=== PATIENT | male | born 1965 | race Asian ===

== ENCOUNTER → 2019-01-04 11:26 | Outpatient (CLI) | payer BC, SELFPAY | PROVIDERS: PCP Family Medicine; Visit Provider Registered Nurse | DX: R50.9 Fever, unspecified (principal) | CPT/HCPCS: 87400 ==

== ENCOUNTER → 2019-11-17 12:08 | Outpatient (CLI) | payer BC, SELFPAY ==
--- NOTE | 2019-11-17 12:11 | DI.RAD.S_ITS ---
PROCEDURE: XR SHOULDER RT MIN 2V INDICATIONS: rt shoulder pain TECHNIQUE: 3 views of the shoulder were acquired. COMPARISON: None. FINDINGS: Bones: No fractures or dislocations. No suspicious bony lesions. Visualized ribs appear intact. Mild joint narrowing with periarticular osteophyte formation. Soft tissues: No suspicious soft tissue calcifications. IMPRESSION: Mild acromioclavicular and glenohumeral joint degeneration Dictated by: Sang Amador RRA Interpreted: Caridad Page MD on 11/17/2019 at 13:47 Approved by: Caridad Page M.D. on 11/17/2019 at 14:02
== END ==
PROVIDERS: PCP Family Medicine; Visit Provider Family Medicine
DX: M25.511 Pain in right shoulder (principal); M19.011 Primary osteoarthritis, right shoulder
CPT/HCPCS: 73030

== ENCOUNTER → 2020-04-22 15:37 | Outpatient (ROUT) | payer BC, SELFPAY ==
[2020-04-24 10:58] LABS: COVID19 Sendout NOT DETECTED (Not Detect)
== END ==
PROVIDERS: PCP Family Medicine; Visit Provider Nurse Practitioner
DX: J45.901 Unspecified asthma with (acute) exacerbation (principal)
CPT/HCPCS: 87635

== ENCOUNTER → 2020-08-23 07:31 | Outpatient (CLI) | payer BC, SELFPAY ==
--- NOTE | 2020-08-23 07:33 | DI.RAD.S_ITS ---
PROCEDURE: XR LUMBAR SPINE MIN 4V INDICATIONS: left side back pain and hip TECHNIQUE: 5 views of the lumbar spine were acquired. COMPARISON: None. FINDINGS: Bones: 5 nonrib-bearing vertebrae are present. There is normal bony alignment. No vertebral body compression fractures. No suspicious bony lesions. Soft tissues: Overlying bowel gas pattern is normal. No suspicious soft tissue calcifications. Oblique images: No pars defects. IMPRESSION: Mild degenerative disc height reduction at L5-S1, mild to moderate facet osteoarthritis at this level. No trauma found. The degenerative changes present would predispose to both spinal and foraminal stenosis and follow-up by MRI may become necessary. Dictated by: Sergei Marie M.D. on 08/23/2020 at 9:35 Approved by: Sergei Marie M.D. on 08/23/2020 at 9:36
--- NOTE | 2020-08-23 07:33 | DI.RAD.S_ITS ---
PROCEDURE: XR HIP W PEL IF DONE LT MIN 4V INDICATIONS: left side back pain and hip TECHNIQUE: AP pelvis with lateral view(s) of the bilateral hip(s). COMPARISON: None. FINDINGS: Bones: No fractures or dislocations. Pelvic ring appears intact. No suspicious bony lesions. Soft tissues: The visualized bowel gas pattern is normal. No suspicious soft tissue calcifications. IMPRESSION: Normal for age, source of current pain symptoms is not seen. Dictated by: Sergei Marie M.D. on 08/23/2020 at 9:34 Approved by: Sergei Marie M.D. on 08/23/2020 at 9:35
[2020-08-23 08:38] LABS: Add Manual Diff / Slide Review NO; Basophils Absolute Auto 0 /uL (0-100); Basophils Percent Auto 0.5 % (0-2); Eosinophils Absolute Auto 100 /uL (0-450); Eosinophils Percent Auto 2.2 % (2-4); Hematocrit 43.5 % (41-53); Hemoglobin 14.9 g/dL (13.5-17.5); Lymphocytes Absolute Auto 1500 /uL (1100-4500); Lymphocytes Percent Auto 23.8 % (25-40); Mean Corpuscular HGB Conc 34.2 % (30-36); Mean Corpuscular Hemoglobin 30.4 PG (26-34); Mean Corpuscular Volume 88.8 fL (80-100); Monocytes Absolute Auto 600 /uL (0-900); Monocytes Percent Auto 9.2 % (3-14); Neutrophils Absolute Auto 3900 /uL (1500-7000); Neutrophils Percent Auto 64.3 % (50-75); Platelet Count 264 X10^3/uL (150-400); Red Blood Cell Count 4.89 X10^6/uL (4.5-5.9); Red Cell Distribution Width 13.4 % (11.6-14.8); White Blood Cell Count 6.1 X10^3/uL (4.5-11.0)
[2020-08-23 09:13] LABS: Alanine Aminotransferase 23 IU/L (<50); Albumin 4.4 g/dL (3.5-5.0); Albumin Globulin Ratio 1.5 (1.0-2.8); Alkaline Phosphatase 45 U/L (38-126); Aspartate Aminotransferase 29 IU/L (17-59); BUN Creatinine Ratio 10.9 (6-22); Bilirubin Total 0.6 mg/dL (0.2-1.3); Blood Urea Nitrogen 10 mg/dL (9-20); Calcium 9.5 mg/dL (8.4-10.2); Carbon Dioxide 35 mmol/L (22-32); Chloride 97 mmol/L (98-107); Cholesterol 209 mg/dL (140-199); Estimated Glomerular Filt Rate > 60.0 mL/min (>60); Globulin 2.9 g/dL (1.7-4.1); Glucose 99 mg/dL (70-100); HDL Cholesterol 54 mg/dL (40-60); HEMOLYSIS < 15 (0-50); LDL Cholesterol Calculated 109 mg/dL (<100); Potassium 4.5 mmol/L (3.4-5.1); Sodium 136 mmol/L (137-145); Total Protein 7.3 g/dL (6.3-8.2); Triglycerides 228 mg/dL (35-150)
[2020-08-23 09:44] LABS: TSH w/ Reflex to FT4 0.83 uIU/mL (0.47-4.68)
== END ==
PROVIDERS: PCP Family Medicine; Referring Provider Family Medicine; Visit Provider Family Medicine
DX: I10 Essential (primary) hypertension (principal); I48.91 Unspecified atrial fibrillation; K21.9 Gastro-esophageal reflux disease without esophagitis; M54.5 Low back pain
CPT/HCPCS: 36415; 72110; 73522; 80053; 80061; 84443; 85025

== ENCOUNTER → 2021-01-10 13:42 | Outpatient (CLI) | payer BC, SELFPAY ==
[2021-01-10] MEDS: COVID-19 VACC, Ad26(JANSSEN)/PF 0.5 ML IM (13:47)
== END ==
PROVIDERS: PCP Family Medicine; Visit Provider Internal Medicine
DX: Z23 Encounter for immunization (principal)
CPT/HCPCS: 0031A; 91303

== ENCOUNTER → 2021-11-24 07:30 | Outpatient (CLI) | payer BC, SELFPAY ==
--- NOTE | 2021-11-24 07:32 | DI.RAD.S_ITS ---
PROCEDURE: XR ABDOMEN MIN 2V INDICATIONS: abdominal pain TECHNIQUE: 2 views of the abdomen were acquired. COMPARISON: None. FINDINGS: Surgical changes and devices: None. Bowel: No pneumoperitoneum. The bowel gas pattern is nonobstructive. Moderate stool is present. Soft tissues: No masses; visualized solid organ contours appear normal in size. No suspicious abdominal calcifications. Bones: No suspicious bony abnormalities. IMPRESSION: Moderate stool consistent with constipation. No obstruction. Dictated by: Caridad Page M.D. on 11/24/2021 at 8:35 Approved by: Cardiad Page M.D. on 11/24/2021 at 8:35
--- NOTE | 2021-11-24 07:32 | DI.RAD.S_ITS ---
PROCEDURE: XR CHEST 2V INDICATIONS: cough TECHNIQUE: 2 views of the chest were acquired. COMPARISON: None. FINDINGS: Surgical changes and devices: None. Lungs and pleura: Lungs are clear. No pleural effusions or pneumothorax. Mediastinum: Mediastinal contours are normal. Heart size is normal. Bones and chest wall: No suspicious bony abnormalities. Soft tissues appear unremarkable. IMPRESSION: No acute pulmonary process. Dictated by: Caridad Page M.D. on 11/24/2021 at 8:34 Approved by: Caridad Page M.D. on 11/24/2021 at 8:35
--- NOTE | 2021-11-24 07:32 | DI.US.S_ITS ---
PROCEDURE: US ABDOMEN COMPLETE INDICATIONS: ABDOMINAL DISCOMFORT AND FAMILY HISTORY AORTIC ANEURYSM TECHNIQUE: Real-time scanning was performed of the abdominal and retroperitoneal organs, with image documentation. COMPARISON: [facility], CR, XR ABDOMEN MIN 2V, 11/24/2021, 7:29. FINDINGS: Liver: Liver is normal in size and homogeneous in echotexture. Gallbladder: Multiple small stones and apparent mobile sludge can be seen within the gallbladder. A polyp versus gallbladder fold can be seen at the junction of the gallbladder neck and the cystic duct that measures up to 7 mm. The gallbladder wall is not thickened, measuring 3 mm or less. No specific pericholecystic fluid is seen. The sonographic Noble sign is negative. Biliary ducts: Intrahepatic bile ducts are non-dilated. Extrahepatic bile duct caliber measures 3 mm. Normal is 6-7 mm or less in diameter, or 10 mm or less post-cholecystectomy. Pancreas: There is a potential pancreatic cyst seen at the pancreatic tail that measures up to 6 mm. Spleen: Spleen is normal in size and homogeneous in echotexture. Kidneys: Kidneys are normal in size and echotexture. Right kidney measures 10.5 cm long; left kidney measures 12.2 cm long. No hydronephrosis or nephrolithiasis. No solid masses. Aorta: Visualized aorta is normal in caliber at less than 3 cm. Iliacs: Proximal common iliac arteries are normal in caliber at less than 2.5 cm. IVC: Intrahepatic inferior vena cava is patent. Miscellaneous: No free abdominal fluid. IMPRESSION: Negative for abdominal aortic aneurysm. Multiple small mobile stones and apparent sludge can be seen within the gallbladder. There is an apparent gallbladder wall polyp seen near the junction of the gallbladder neck and cystic duct that measure up to 7 mm. No additional gallbladder abnormality can be seen. There is an apparent 6 mm cyst seen at the tail of the pancreas, which is not well seen. If clinically appropriate, please consider a follow-up liver protocol MRI (without and with contrast) for further evaluation (assuming that there is no contraindication). Dictated by: Kevin Trimble M.D. on 11/24/2021 at 9:02 Approved by: Kevin Trimble M.D. on 11/24/2021 at 9:05
[2021-11-24 07:45] LABS: Add Manual Diff / Slide Review NO; Basophils Absolute Auto 100 /uL (0-100); Basophils Percent Auto 0.8 % (0-2); Eosinophils Absolute Auto 200 /uL (0-450); Eosinophils Percent Auto 2.7 % (2-4); Hematocrit 44.9 % (41-53); Hemoglobin 15.4 g/dL (13.5-17.5); Lymphocytes Absolute Auto 1700 /uL (1100-4500); Mean Corpuscular HGB Conc 34.3 % (30-36); Mean Corpuscular Hemoglobin 30.3 PG (26-34); Mean Corpuscular Volume 88.1 fL (80-100); Monocytes Absolute Auto 700 /uL (0-900); Monocytes Percent Auto 10.4 % (3-14); Neutrophils Absolute Auto 4100 /uL (1500-7000); Neutrophils Percent Auto 61.1 % (50-75); Platelet Count 271 X10^3/uL (150-400); White Blood Cell Count 6.6 X10^3/uL (4.5-11.0)
[2021-11-24 08:02] LABS: Alanine Aminotransferase 23 IU/L (<50); Albumin 4.6 g/dL (3.5-5.0); Albumin Globulin Ratio 1.4 (1.0-2.8); Alkaline Phosphatase 43 U/L (38-126); Aspartate Aminotransferase 31 IU/L (17-59); BUN Creatinine Ratio 14.3 (6-22); Bilirubin Total 0.8 mg/dL (0.2-1.3); Blood Urea Nitrogen 15 mg/dL (9-20); Calcium 9.5 mg/dL (8.4-10.2); Carbon Dioxide 32 mmol/L (22-32); Chloride 102 mmol/L (98-107); Cholesterol 234 mg/dL (140-199); Estimated Glomerular Filt Rate > 60.0 mL/min (>60); Globulin 3.2 g/dL (1.7-4.1); Glucose 106 mg/dL (70-100); HDL Cholesterol 62 mg/dL (40-60); HEMOLYSIS < 15 (0-50); LDL Cholesterol Calculated 128 mg/dL (<100); Potassium 4.1 mmol/L (3.4-5.1); Sodium 137 mmol/L (137-145); Total Protein 7.8 g/dL (6.3-8.2); Triglycerides 222 mg/dL (35-150)
[2021-11-24 08:35] LABS: TSH w/ Reflex to FT4 0.99 uIU/mL (0.47-4.68)
== END ==
PROVIDERS: PCP Family Medicine; Referring Provider Family Medicine; Visit Provider Family Medicine
DX: R10.9 Unspecified abdominal pain (principal); R05.3 Chronic cough; I10 Essential (primary) hypertension; I48.91 Unspecified atrial fibrillation; I73.00 Raynaud's syndrome without gangrene; K80.20 Calculus of gallbladder without cholecystitis without obstruction
CPT/HCPCS: 36415; 71046; 74019; 76700; 80053; 80061; 84153; 84443; 85025

== ENCOUNTER → 2021-12-05 14:36 | Outpatient (CLI) | payer BC, SELFPAY ==
--- NOTE | 2021-12-05 | DI.CT.S_ITS ---
PROCEDURE: CT SINUS SCREEN WO CON INDICATIONS: Chronic pansinusitis TECHNIQUE: Noncontrast 3.0 mm axial images acquired from the frontal sinuses to the mid-sella, with coronal and sagittal reformats. For radiation dose reduction, the following was used: automated exposure control, adjustment of mA and/or kV according to patient size. COMPARISON: None. FINDINGS: Image quality: Excellent. Maxillary Sinuses: No bony remodeling or destruction. Sinuses are clear. Ethmoid Air Cells: No bony remodeling or destruction. Sinuses are clear. Sphenoid Sinuses: No bony remodeling or destruction. Sinuses are clear. Frontal Sinuses: No bony remodeling or destruction. Sinuses are clear. Ostiomeatal Complexes: Ostiomeatal complexes are patent. No Marissa cells. Miscellaneous: Visualized intra-orbital contents are normal. No dhaval bullosa or paradoxical turbinate curvature. No nasal septal deviation. IMPRESSION: Unremarkable CT of the paranasal sinuses Approved by: Gurpreet Justice M.D. on 12/05/2021 at 15:16
== END ==
PROVIDERS: PCP Family Medicine; Referring Provider Otolaryngology; Visit Provider Otolaryngology
DX: J32.4 Chronic pansinusitis (principal); R05.9 Cough, unspecified; R09.82 Postnasal drip
CPT/HCPCS: 70486

== ENCOUNTER → 2022-11-18 09:21 | Outpatient (CLI) | payer BC, SELFPAY ==
[2022-11-18 10:29] LABS: Add Manual Diff / Slide Review NO; Basophils Absolute Auto 0 /uL (0-100); Basophils Percent Auto 0.6 % (0-2); Eosinophils Absolute Auto 200 /uL (0-450); Eosinophils Percent Auto 2.9 % (2-4); Hematocrit 44.4 % (41-53); Hemoglobin 15.1 g/dL (13.5-17.5); Lymphocytes Absolute Auto 1500 /uL (1100-4500); Lymphocytes Percent Auto 28.3 % (25-40); Mean Corpuscular HGB Conc 34.1 % (30-36); Mean Corpuscular Hemoglobin 30.2 PG (26-34); Mean Corpuscular Volume 88.5 fL (80-100); Monocytes Absolute Auto 500 /uL (0-900); Monocytes Percent Auto 9.2 % (3-14); Neutrophils Absolute Auto 3200 /uL (1500-7000); Platelet Count 254 X10^3/uL (150-400); Red Blood Cell Count 5.01 X10^6/uL (4.5-5.9); Red Cell Distribution Width 13.8 % (11.6-14.8); White Blood Cell Count 5.4 X10^3/uL (4.5-11.0)
[2022-11-18 10:53] LABS: Alanine Aminotransferase 23 IU/L (<50); Alkaline Phosphatase 44 U/L (38-126); Aspartate Aminotransferase 28 IU/L (17-59); BUN Creatinine Ratio 11.8 (6-22); Bilirubin Total 0.7 mg/dL (0.2-1.3); Blood Urea Nitrogen 12 mg/dL (9-20); Calcium 8.7 mg/dL (8.4-10.2); Carbon Dioxide 29 mmol/L (22-32); Chloride 102 mmol/L (98-107); Cholesterol 242 mg/dL (140-199); Estimated Glomerular Filt Rate > 60 mL/min (>60); Glucose 102 mg/dL (70-100); HDL Cholesterol 56 mg/dL (40-60); HEMOLYSIS < 15 (0-50); LDL Cholesterol Calculated 156 mg/dL (<100); Potassium 3.9 mmol/L (3.4-5.1); Sodium 138 mmol/L (137-145); Total Protein 7.5 g/dL (6.3-8.2); Triglycerides 152 mg/dL (35-150)
[2022-11-18 11:18] LABS: TSH w/ Reflex to FT4 0.94 uIU/mL (0.47-4.68)
[2022-11-20 16:43] LABS: Albumin 4.4 g/dL (3.5-5.0); Albumin Globulin Ratio 1.4 (1.0-2.8); Globulin 3.1 g/dL (1.7-4.1)
== END ==
PROVIDERS: PCP Family Medicine; Referring Provider Physician Assistant; Visit Provider Physician Assistant
DX: E78.5 Hyperlipidemia, unspecified (principal); I10 Essential (primary) hypertension; I73.00 Raynaud's syndrome without gangrene
CPT/HCPCS: 36415; 80053; 80061; 84443; 85025

== ENCOUNTER 2023-04-28 15:50 | Emergency (ER) | payer BC, SELFPAY ==
[2023-04-28 15:54] VITALS: BP 164/89; PULSE 85; RESP 18; TEMP 36.8; O2SAT 98; BMI 27.3
--- NOTE | 2023-04-28 15:59 | DI.RAD.S_ITS ---
PROCEDURE: XR SHOULDER RT MIN 2V INDICATIONS: Injury TECHNIQUE: 3 views of the shoulder were acquired. COMPARISON: [facility], CR, XR SHOULDER RT MIN 2V, 11/17/2019, 12:09. FINDINGS: Bones: No fractures or dislocations. No suspicious bony lesions. Visualized ribs appear intact. Soft tissues: No suspicious soft tissue calcifications. IMPRESSION: No acute bony abnormality. Dictated by: Fernando Taylor M.D. on 04/28/2023 at 16:30 Approved by: Fernando Taylor M.D. on 04/28/2023 at 16:31
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
[2023-04-28 16:51] VITALS: BP 155/87; PULSE 80; RESP 18; O2SAT 99
== END 2023-04-28 16:53 | disposition home or self-care (01) ==
PROVIDERS: Emergency Provider Emergency Medicine; PCP Family Medicine; Referring Provider Family Medicine
DX: M25.511 Pain in right shoulder (principal); V19.9XXA Pedal cyclist (driver) (passenger) injured in unspecified traffic accident, initial encounter
CPT/HCPCS: 73030; 99283

== ENCOUNTER → 2023-09-08 08:52 | Outpatient (CLI) | payer BC, SELFPAY ==
--- NOTE | 2023-09-08 08:52 | DI.US.S_ITS ---
PROCEDURE: US ABDOMEN COMPLETE INDICATIONS: ABDOMINAL DISCOMFORT WITH FAMILY HISTORY OF AORTIC ANEURYSM TECHNIQUE: Real-time scanning was performed of the abdominal and retroperitoneal organs, with image documentation. COMPARISON: [facility], US, US ABDOMEN COMPLETE, 11/24/2021, 8:30. FINDINGS: Liver: Liver is normal in size and homogeneous in echotexture. Gallbladder: There gallstones present within the patient's gallbladder. Gallbladder wall is normal at 2 millimeters. Biliary ducts: Intrahepatic bile ducts are non-dilated. Extrahepatic bile duct caliber measures 2.2 mm. Normal is 6-7 mm or less in diameter, or 10 mm or less post-cholecystectomy. Pancreas: Again noted is a simple appearing cystic structure in the tail of the pancreas measuring 1.1 x 0.9 x 0.7 centimeters in maximal dimension. Spleen: Spleen is normal in size and homogeneous in echotexture. Kidneys: Kidneys are normal in size and echotexture. Right kidney measures 11.2 cm long; left kidney measures 11.6 cm long. No hydronephrosis or nephrolithiasis. No solid masses. There imaging findings suggestive of right renal calculi. Aorta: Visualized aorta is normal in caliber at less than 3 cm. Iliacs: Proximal common iliac arteries are normal in caliber at less than 2.5 cm. IVC: Intrahepatic inferior vena cava is patent. Miscellaneous: No free abdominal fluid. IMPRESSION: 1. Slight interval size in small cystic structure involving the tail of the pancreas now measuring measuring 1.1 centimeters in maximal dimension. If further evaluation is clinically indicated an MRCP with and without intravenous gadolinium may be of further clinical value. 2. 2. Cholelithiasis. 3. 3. Right renal calculi Dictated by: Jay Ferreira M.D. on 09/08/2023 at 13:14 Approved by: Jay Ferreira M.D. on 09/08/2023 at 13:20
== END ==
PROVIDERS: PCP Family Medicine; Referring Provider Family Medicine; Visit Provider Family Medicine
DX: K86.2 Cyst of pancreas (principal); K80.20 Calculus of gallbladder without cholecystitis without obstruction; N20.0 Calculus of kidney; R10.9 Unspecified abdominal pain; Z82.49 Family history of ischemic heart disease and other diseases of the circulatory system
CPT/HCPCS: 76700

== ENCOUNTER → 2023-10-01 12:02 | Outpatient (CLI) | payer BC, SELFPAY | PROVIDERS: PCP Family Medicine; Visit Provider Nurse Practitioner Family | DX: L02.91 Cutaneous abscess, unspecified (principal) | CPT/HCPCS: 87070; 87077; 87186; 87205 ==

== ENCOUNTER → 2023-10-04 13:13 | Outpatient (CLI) | payer BC, SELFPAY ==
--- NOTE | 2023-10-04 13:30 | DI.MRI.S_ITS ---
PROCEDURE: MR AB PANCREATIC/MRCP PROTOCOL INDICATIONS: cyst on pancreatic tail TECHNIQUE: Coronal HASTE through the abdomen, axial 2-D FLASH in- and [id number], and breath-hold T2 FSE with fat saturation through the biliary system and pancreas. Oblique coronal and axial thin-slice HASTE, radial thick-slab HASTE centered on the extrahepatic bile ducts. Intravenous secretin: Not requested. COMPARISON: [facility], , US ABDOMEN COMPLETE, 09/08/2023, 9:12. FINDINGS: Image quality: Excellent. Pancreas and biliary system: Intra- and extra-hepatic biliary ducts are non dilated. Pancreas is normal in morphology, without adjacent soft tissue edema. Pancreatic duct is normal in caliber, without developmental anomalies. Tiny cyst in the tail the pancreas measuring 0.3 cm, (3/11). No restricted diffusion. No suspicious enhancement. Multiple layering gallstones. Other solid organs: Liver is normal in size. Small T2 hyperintense cysts. Spleen is normal in size. No adrenal nodules. Both kidneys are normal in size, without hydronephrosis. Nodes and vessels: No retroperitoneal or mesenteric adenopathy by size criteria. Aorta and inferior vena cava are normal in size. Bowel and peritoneum: Unenhanced bowel loops are normal in caliber. No free fluid. Lung bases: No basal pleural effusions. Heart size is normal. Bones and soft tissues: No ventral hernias. Bone marrow is of normal overall signal. IMPRESSION: 1. Tiny cyst in the tail the pancreas measuring 0.3 cm. No suspicious imaging features. 2. No pancreatic or biliary ductal dilatation. 3. Multiple layering gallstones. Dictated by: Sridhar Woodard M.D. on 10/04/2023 at 17:06 Approved by: Sridhar Woodard M.D. on 10/04/2023 at 17:13
== END ==
PROVIDERS: PCP Family Medicine; Referring Provider Family Medicine; Visit Provider Family Medicine
DX: R93.5 Abnormal findings on diagnostic imaging of other abdominal regions, including retroperitoneum (principal); Q45.3 Other congenital malformations of pancreas and pancreatic duct; K80.20 Calculus of gallbladder without cholecystitis without obstruction; K76.89 Other specified diseases of liver
CPT/HCPCS: 74183; A9579

== ENCOUNTER → 2024-01-19 08:30 | Outpatient (CLI) | payer BC, SELFPAY ==
[2024-01-19 09:54] LABS: Add Manual Diff / Slide Review NO; Basophils Absolute Auto 0 /uL (0-100); Basophils Percent Auto 0.6 % (0-2); Eosinophils Absolute Auto 200 /uL (0-450); Hematocrit 43.7 % (41-53); Lymphocytes Absolute Auto 1400 /uL (1100-4500); Lymphocytes Percent Auto 27.3 % (25-40); Mean Corpuscular HGB Conc 34.4 % (30-36); Mean Corpuscular Hemoglobin 30.5 PG (26-34); Mean Corpuscular Volume 88.5 fL (80-100); Monocytes Absolute Auto 500 /uL (0-900); Neutrophils Absolute Auto 3100 /uL (1500-7000); Neutrophils Percent Auto 60.1 % (50-75); Platelet Count 248 X10^3/uL (150-400); Red Blood Cell Count 4.94 X10^6/uL (4.5-5.9); Red Cell Distribution Width 13.2 % (11.6-14.8); White Blood Cell Count 5.2 X10^3/uL (4.5-11.0)
[2024-01-19 10:17] LABS: Alanine Aminotransferase 23 IU/L (<50); Albumin 4.4 g/dL (3.5-5.0); Albumin Globulin Ratio 1.4 (1.0-2.8); Alkaline Phosphatase 47 U/L (38-126); Aspartate Aminotransferase 29 IU/L (17-59); BUN Creatinine Ratio 15.5 (6-22); Bilirubin Total 0.8 mg/dL (0.2-1.3); Blood Urea Nitrogen 16 mg/dL (9-20); Calcium 9.2 mg/dL (8.4-10.2); Carbon Dioxide 30 mmol/L (22-32); Chloride 104 mmol/L (98-107); Cholesterol 235 mg/dL (140-199); Estimated Glomerular Filt Rate > 60 mL/min (>60); Globulin 3.1 g/dL (1.7-4.1); Glucose 101 mg/dL (70-100); HDL Cholesterol 62 mg/dL (40-60); HEMOLYSIS < 15 (0-50); LDL Cholesterol Calculated 149 mg/dL (<100); Potassium 4.8 mmol/L (3.4-5.1); Sodium 138 mmol/L (137-145); Total Protein 7.5 g/dL (6.3-8.2); Triglycerides 121 mg/dL (35-150)
[2024-01-19 10:45] LABS: TSH w/ Reflex to FT4 0.52 uIU/mL (0.47-4.68)
[2024-01-19 10:46] LABS: Testosterone 331 ng/dL (71.8-623)
== END ==
PROVIDERS: PCP Family Medicine; Referring Provider Family Medicine; Visit Provider Family Medicine
DX: I10 Essential (primary) hypertension (principal); I73.00 Raynaud's syndrome without gangrene; R53.83 Other fatigue
CPT/HCPCS: 36415; 80053; 80061; 84403; 84443; 85025

== ENCOUNTER → 2024-07-06 | Outpatient (CLI) | payer BC, SELFPAY ==
--- NOTE | 2024-07-06 12:50 | DI.ECHO.S_ITS ---
Version 2 Tati Tran + + Hospital : : [facility] : : [address] . : : [place], : : [place] [address] : : Phone: [phone] Echocardiogram Report + + :Name: EVANGELIST MORSE Study Date: 07/06/2024 Height: 69 in : :[facility] ReadingLocation: Weight: 183 lb : : Gender: Male BSA: 2.0 m2 : :: 1965 Age: 58 yrs BP: 144/96 mmHg: :Reason For Study: HEART MURMUR : :Ordering Physician: DALLAS, : :LEWIS Performed By: Lewis Galaviz : :Referring: LEWIS HAYNES : + + Interpretation Summary 1) Normal left ventricular thickness, size, wall motion, and systolic function (EF 60-65%). 2) Normal right ventricular size and function. 3) No significant valvular abnormalities. 4) The aortic root is mildly dilated at 4.2cm. 5) No prior Echo available for comparison. Procedure: A two-dimensional transthoracic echocardiogram with color flow and Doppler was performed. The study quality was technically adequate. There is no prior echocardiogram noted for this patient. The patient was in sinus rhythm with heart rates between 53-60 bpm during the exam. Left Ventricle: The left ventricle is normal in size and wall thickness. The ejection fraction is estimated to be 60-65%. Left ventricular systolic function appears normal without focal wall motion abnormalities. Diastolic parameters suggest a relaxation abnormality of the left ventricle, consistent with probable normal filling pressures. Right Ventricle: The right ventricle is normal size. The right ventricular systolic function is normal. Atria: The left atrial size is normal. Right atrial size is normal. The interatrial septum grossly appears intact with no obvious evidence for an atrial septal defect. Mitral Valve: The mitral valve is normal. There is no mitral valve stenosis. There is trace mitral regurgitation. Aortic Valve: The aortic valve is trileaflet. The aortic valve is slightly calcified. The aortic valve opens well. There is no aortic valve stenosis. There is trace aortic regurgitation. Tricuspid Valve: The tricuspid valve is normal. There is no tricuspid stenosis. There is mild tricuspid regurgitation. The right ventricular systolic pressure is estimated to be at least 34.4 mmHg based on an estimated right atrial pressure of 3 mm Hg. Pulmonic Valve: The pulmonic valve is not well visualized. There is no pulmonic valvular stenosis. There is trace pulmonic regurgitation. Great Vessels: The aortic root is mildly dilated. The ascending aorta is normal in size. The aortic arch is normal in size. The IVC is of normal diameter and collapses greater than 50% with a sniff. This suggests a low right atrial pressure of 3 mm Hg. Pericardium/ Pleura There is no pericardial effusion. There is no pleural effusion. MMode/2D Measurements & Calculations LVIDd: 5.1 cm LVOT diam: 2.0 cm LVIDs: 3.4 cm Ao root diam: 4.2 cm IVSd: 0.89 cm asc Aorta Diam: 3.6 cm LVPWd: 0.97 cm Ao Arch Diam (Prox Trans): 2.2 cm LV lopez. diameter/BSA (cm/m^2): 2.6 LV sys. diameter/BSA (cm/m^2): 1.7 FS: 33.6 % LA A2 area: 22.4 cm2 RA long axis: 4.3 cm LA A4 area: 18.8 cm2 RA area: 15.2 cm2 LA length (vol): 5.5 cm RA vol: 46.2 ml LA vol: 64.8 ml RA : 23.2 ml/m2 LA vol index: 32.6 ml/m2 RVD1 (basal): 3.8 cm IVC diam: 1.8 cm RVD2 (mid): 3.7 cm TAPSE: 2.3 cm Doppler Measurements & Calculations Ao V2 max: 172.3 cm/sec LVOT Max Jhonathan: 140.0 cm/sec Ao V2 mean: 118.9 cm/sec LV V1 max P.8 mmHg Ao V2 VTI: 38.0 cm LV V1 VTI: 30.5 cm Ao max P.9 mmHg Ao mean P.4 mmHg SIVA(I,D): 2.6 cm2 MV E max jhonathan: 86.1 cm/sec SIVA(V,D): 2.6 cm2 MV A max jhonathan: 79.1 cm/sec SIVA indexed to BSA (cm^2/m^2): 1.3 MV E/A: 1.1 sev ratio: 0.80 Med Peak E' Jhonathan: 7.7 cm/sec E/E' med: 11.2 Lat Peak E' Jhonathan: 10.3 cm/sec E/E' lat: 8.4 E/e' average: 9.8 MV dec time: 0.15 sec TR max jhonathan: 280.2 cm/sec TR max P.4 mmHg PA V2 max: 105.8 cm/sec SV(LVOT): 97.8 ml PA V2 mean: 75.3 cm/sec PA mean P.5 mmHg PA pr(Accel): 37.9 mmHg Reading Physician:07:21 AM
== END ==
LOC: ECHO 12:29
PROVIDERS: PCP Family Medicine; Referring Provider Family Medicine; Visit Provider Family Medicine
DX: I07.1 Rheumatic tricuspid insufficiency (principal); I77.810 Thoracic aortic ectasia; R01.1 Cardiac murmur, unspecified; Z82.49 Family history of ischemic heart disease and other diseases of the circulatory system
CPT/HCPCS: 93306

== ENCOUNTER → 2024-08-28 09:43 | Outpatient (CLI) | payer BC, SELFPAY | PROVIDERS: PCP Family Medicine; Referring Provider Family Medicine; Visit Provider Family Medicine | DX: I47.10 Supraventricular tachycardia, unspecified (principal) | CPT/HCPCS: 93246; 93248 ==

== ENCOUNTER → 2025-02-07 08:11 | Outpatient (CLI) | payer BC, SELFPAY ==
--- NOTE | 2025-02-07 08:13 | DI.NM.S_ITS ---
PROCEDURE: NM EXERCISE TREADMILL NON NUC COMPARISON: None. INDICATIONS: Abnormal EKG FINDINGS: Rest ECG sinus rhythm. Jose protocol 12:00, maximum heart rate 169 bpm (106% peak predicted), peak blood pressure 206/118, 12.8 METS, IBRAHIMA -36%. Exercise ECG sinus tachycardia, 2 to 3 mm horizontal to downsloping ST segment depressions leads II, III, aVF, V3-V6. No arrhythmias. The patient did not report exercise-induced chest discomfort. IMPRESSION: Abnormal study. Exercise-induced ST segment changes suggestive of inducible ischemia. Hypertensive response to exercise. Normal heart rate response. Very good exercise capacity. Dictated by: Destinee Cifuentes D.O. on 02/07/2025 at 17:05 Approved by: Destinee Cifuentes D.O. on 02/07/2025 at 17:09
== END ==
PROVIDERS: PCP Family Medicine; Referring Provider Physician Assistant; Visit Provider Physician Assistant
DX: R94.31 Abnormal electrocardiogram [ECG] [EKG] (principal); R00.0 Tachycardia, unspecified
CPT/HCPCS: 93017

== ENCOUNTER 2025-08-23 07:39 | Day surgery (SDC) | payer BC, SELFPAY ==
[2025-08-23] VITALS (7 sets, daily range): BP systolic 98–136; BP diastolic 54–80; PULSE 53–65; RESP 14–23; TEMP 36.1–36.6; O2SAT 92–100
--- NOTE | 2025-08-23 | PATH_ITS ---
[facility] Accession Number: [id number] No. of containers..01 Tissue . 01 Material submitted: . colon - COLON, DESCENDING POLYP . 01 Diagnosis: A: DESENDING COLON, POLYPECTOMY: Colonic mucosa with benign lymphoid aggregate. Negative for dysplasia, or malignancy. Additional deeper levels were examined. [facility] 09/05/2025 1349 Local . 01 Electronically signed: . Lisa Moore MD, Pathologist NPI- [id number] . 01 Gross description: . Received is one formalin-filled container labeled with the patient's name labeled descending colon polyp, is one fragment of gamez, soft tissue which measures 0.3 x 0.2 x 0.2 cm. The specimen is totally submitted in cassette A1. ([id number]) /SHANNA 08/31/2025 0217 Local . 01 Pathologist provided ICD-10: Z12.11 . 01 CPT . 982982 Specimen Comment: A courtesy copy of this report has been sent to [facility]ology Performed at: [address] [address], [place], [place] [id number] MD Lucas Nieto MD Phone: [phone]
--- NOTE | 2025-08-23 06:23 | PM.HP.IH.1 ---
History of Present Illness History of Present Illness Date Patient Seen: 08/23/25 Time Patient Seen: 06:23 Chief complaint: Colonoscopy Narrative: Patient presents for screening colonoscopy this morning. [facility] Medical History (Updated 08/23/25 @ 06:24 by Jared Ortiz MD) Atrial fibrillation (04/10/15) Asthma (04/10/15) Surgical History Status post tonsillectomy and adenoidectomy Social History marital status: alcohol intake: current (1-3 A WEEK) substance use type: does not use Meds Home Medications and Allergies Home Medications ?Medication ?Instructions ?Recorded ?Confirmed ?Type sildenafil (pulm.hypertension) 20 20 mg PO .COMPLEX #30 tabs 09/10/20 01/25/25 Rx mg tablet azelastine 137 mcg (0.1 %) nasal See Rx Instructions intranasal BID 10/13/22 01/25/25 Rx spray PRN post nasal drainage/vasomotor rhinits #30 mL lisinopril 40 mg tablet 40 mg PO DAILY #90 tabs 01/15/25 01/25/25 Rx sodium,potassium,mag sulfates 17.5 See Rx Instructions PO .COMPLEX 01/22/25 Rx gram-3.13 gram-1.6 gram oral soln #354 mL (Suprep Bowel Prep Kit) tamsulosin 0.4 mg capsule (Flomax) 0.8 mg (2 x 0.4 mg) PO DAILY #180 02/27/25 Rx caps Allergies Allergy/AdvReac Type Severity Reaction Status Date / Time iodine (IODINE) Allergy Severe HIVES, Verified 01/25/25 12:05 SWELLING, ITCHY shellfish derived (SHELLFISH Allergy Severe HIVES, Verified 01/25/25 12:05 DERIVED) SWELLING, ITCHY Exam Narrative Exam Narrative: Const General: healthy appearing, comfortable and no acute distress Orientation: alert and oriented x3 HENMT Ears: hearing grossly normal bilaterally Eyes Visual Perez: normal visual perez by confrontation Conjunctivae: conjunctivae normal Sclera: sclerae normal EOM: EOM intact bilaterally Resp Effort & Inspection: normal respiratory effort and able to speak in complete sentences Cardio Rate: regular rate GI Palpation: soft (NT) Extrem General: no pedal edema and no calf tenderness Assessment & Plan Assessment and plan (1) Encounter for screening colonoscopy: Status: Acute Plan Plan screening colonoscopy, possible biopsy. The risks, benefits and options regarding the procedure were explained to the patient in detail. Risk discussion included but not limited to: bleeding, perforation, missed lesion, unable to reach cecum. The patient was encouraged to ask questions and they were answered to their satisfaction. The patient understands and is agreeable to proceed. Time-Based Coding :: [TOTAL MINUTES] spent with patient and on the chart (including review of chart, obtaining history, exam, reviewing outside data, placing orders, documenting exam and treatment plan, and counseling patient) on [DATE]. [employer] Document charge(s): Yes Charge Codes Inpatient/observation care including admit and discharge same day: [id number]
[2025-08-23] MEDS: LACTATED RINGERS 1,000 ML 42 ML IV (08:13)
--- NOTE | 2025-08-23 09:22 | P.OP.COLON_ITS ---
Operative Date/Time/Diagnoses Date of procedure: 08/23/25 Time of procedure: 09:42 Pre-op diagnosis: Colon screening Post-op diagnosis: same Procedure & Clinicians Study performed: Colonoscopy with polypectomy Same procedure(s) as scheduled: Yes Indications: Screening colonoscopy Surgeon: Jared Ortiz Anesthesia Type: MAC +/- Procedure Notes SCOAP/Timeout: Performed Procedure in detail: Colonoscopy Patient placed in left lateral recumbent position. Time out was performed. Procedural sedation was administered by anesthesia. Examination began with a thorough inspection of the perianal area. There was no evidence of fissures, fistulae, external hemorrhoids or cutaneous malignancy. The colonoscope was then placed into the rectum and the lumen was insufflated with carbon dioxide. The scope was carefully advanced forward. Ultimately the cecum was intubated and confirmed by identification of the ileocecal valve, the appendiceal orifice and the confluence of the taenia. The scope was then slowly withdrawn examining the colon thoroughly in all directions. In the rectum, retroflexion of the scope was performed for inspection of the distal rectum and anal canal. ?Significant colonoscopy findings: ?1. Quality of the preparation-good, [place] 2-3, improved with irrigation/suction ?2. Single 3mm sessile, bening appearing polyp in descending colon, removed with cold snare for biopsy Scope withdrawal time: 8 minutes Findings: polyp(s) Specimen(s): other (polyp) Estimated Blood Loss: 5 Complications: none Impression: Single polyp in descending colon, path pending Post-procedure Recommendations: Colonoscopy in 10 years Plan for aftercare: PACU then home Follow up: as needed Disposition: PACU
== END 2025-08-23 10:15 | disposition home or self-care (01) ==
PROVIDERS: Surgery; PCP Family Medicine; Referring Provider Surgery; Visit Provider Surgery
PROC: 0DJD8ZZ Inspection of Lower Intestinal Tract, Via Natural or Artificial Opening Endoscopic (ICD-10-PCS; CPT 45378; principal; 2025-08-23 09:00)
DX: Z12.11 Encounter for screening for malignant neoplasm of colon (principal); K63.5 Polyp of colon
CPT/HCPCS: 45385; J2704; J7120

== ENCOUNTER → 2025-10-08 14:27 | Outpatient (CLI) | payer BC, SELFPAY ==
[2025-10-08 15:04] LABS: Appearance Urine UA CLEAR; Bilirubin Urine UA NEGATIVE (NEGATIVE); Color Urine UA YELLOW; Glucose Urine UA NEGATIVE (Negative); Ketones Urine UA NEGATIVE (NEGATIVE); Leukocyte Esterase Urine UA NEGATIVE (NEGATIVE); Nitrite Urine UA NEGATIVE (Negative); Occult Blood Urine UA NEGATIVE (Negative); Protein Urine UA NEGATIVE (Negative); Specific Gravity Urine UA <=1.005 (1.000-1.035); Urobilinogen Urine UA 0.2 E.U./dL (0.2); pH Urine UA 6.5 (4.5-8.0)
[2025-10-08 15:26] LABS: Culture Indicated Urine Cult Not Indicated
== END ==
PROVIDERS: PCP Family Medicine; Referring Provider Family Medicine; Visit Provider Family Medicine
DX: R33.9 Retention of urine, unspecified (principal)
CPT/HCPCS: 81001